=== PATIENT | female | born 1950 | race Caucasian/White ===

== ENCOUNTER 2019-02-20 | Emergency (ER) | payer MEDICARE ==
[2019-02-20] MEDS ORDERED: TRAMADOL HYDROC50 MG PO (17:17)
[2019-02-20] MEDS ORDERED: HYZAAR1 TAB PO (17:44)
[2019-02-20] MEDS ORDERED: ROPINIROLE ER2 MG PO (17:44)
[2019-02-20] MEDS ORDERED: MELOXICAM15 MG PO (17:44)
[2019-02-20] MEDS ORDERED: OMEPRAZOLE20 M2 PO (17:45)
[2019-02-20] MEDS ORDERED: SERTRALINE HYDR50 MG PO (17:45)
== END 2019-02-20 17:24 | disposition home or self-care (01) ==
DX: S93.601A Unspecified sprain of right foot, initial encounter (principal); I10 Essential (primary) hypertension; X58.XXXA Exposure to other specified factors, initial encounter; M79.89 Other specified soft tissue disorders

== ENCOUNTER 2019-03-25 | Emergency (ER) | payer MEDICARE ==
[~2019-03-25] MED LIST: HYZAAR1 TAB PO; MELOXICAM15 MG PO; OMEPRAZOLE20 M2 PO; ROPINIROLE ER2 MG PO; SERTRALINE HYDR50 MG PO; TRAMADOL HYDROC50 MG PO
[2019-03-25 02:02] LABS: HEMATOCRIT 37.5 % (37.0-47.0); HEMOGLOBIN 12.5 g/dl (12.0-16.0); IMMATURE GRANULOCYTES 0.5 % (0.0-5.0); MEAN CELL VOLUME 88.2 fL CALC (80.0-100.0); MEAN CORPUSCULAR HGB 29.4 pG CALC (26.0-32.0); MEAN CORPUSCULAR HGB CONC 33.3 g/L CALC (32.0-36.0); NEUT# 8.22 thou/uL (2.00-7.15); RED BLOOD COUNT 4.25 mill/uL (4.20-5.60); RED CELL DISTRI WIDTH 14.1 % (11.5-15.5)
[2019-03-25 02:16] LABS: ALKALINE PHOSPHATASE 73 u/l (38-126); AMYLASE 86 u/l (30-110); ANION GAP 12 (6-22 (CALC)); BILIRUBIN, TOTAL 0.3 mg/dL (0.0-1.4); BUN 19 mg/dL (8-23); BUN/CREATININE RATIO 23 (12-20 (CALC)); CARBON DIOXIDE 26 mmol/l (22-30); CHLORIDE 105 mmol/l (95-108); CREATININE 0.8 mg/dL (0.5-1.0); GFR > 60 ML/MIN (>=60 (CALC)); GFR FOR AFR.AMER. > 60 ML/MIN (>=60 (CALC)); LIPASE 149 u/l (23-300); POTASSIUM 3.4 mmol/l (3.5-5.1); SGOT/AST 74 u/l (9-36); SODIUM 141 mmol/l (137-146); TOTAL PROTEIN 7.1 g/dL (6.3-8.2)
[2019-03-25 02:22] LABS: D-DIMER 0.83 mg/L (0.19-0.60); INTERNATIONAL NORMALIZED RATIO 0.9 RATIO (0.7-1.3); PROTHROMBIN TIME 9.8 SECONDS (9.0-12.5)
[2019-03-25 02:28] LABS: MYOGLOBIN 62 ng/mL (0 - 62)
== END 2019-03-25 03:48 | disposition short-term general hospital (02) ==
PROVIDERS: Family Medicine
DX: R07.9 Chest pain, unspecified (principal); R79.89 Other specified abnormal findings of blood chemistry; I10 Essential (primary) hypertension
CPT/HCPCS: J1644